=== PATIENT | male | born 1935 | race African-American/Black ===

== ENCOUNTER 2022-08-04 10:33 | Outpatient (CLI) | payer MEDICARE, SELFPAY | END 2022-08-04 10:34 | disposition home or self-care (01) | LOC: ANHAUDIO 10:34 | PROVIDERS: PCP Internal Medicine; Visit Provider Otolaryngology | DX: H90.3 Sensorineural hearing loss, bilateral (principal) | CPT/HCPCS: 92557; 92567 ==